=== PATIENT | female | born 1990 ===

== ENCOUNTER 2017-04-29 12:22 | Emergency (ER) | payer OTHER ==
[2017-04-29 12:22] VITALS: BMI 20.7
[2017-04-29 12:34] VITALS: TEMP 98
[2017-04-29] MEDS ORDERED: Albuterol-Ipratrop 3 mg / 0.5 (3 ml) UD INH STA ×3 (12:49→15:06)
--- NOTE | 2017-04-29 12:55 | ED PDOC ---
HPI: SOB/CHF/COPD Time Seen by Provider: 04/29/17 12:30 Chief Complaint (Nursing): Shortness Of Breath Chief Complaint (Provider): SOB, difficulty breathing History Per: Patient History/Exam Limitations: no limitations Onset/Duration Of Symptoms: Days (1) Current Symptoms Are (Timing): Still Present Initiating Event: Upper Respiratory Illness Context: Denies pain Exacerbating Factor(s): Exertion (Walking makes breahting more difficult) Current Respiratory Medications: Albuterol (One treatment at home) Additional Complaint(s): Pt states that over the weekend she had sore throat and mild cough. PT states she felt SOB today. Pt states she used her albuterol at home and it did not help. PT has history of asthma. No fever/chills. PT states she is very short of breath when she tries to walk. Past Medical History Reviewed: Historical Data, Nursing Documentation, Vital Signs Vital Signs: Last Vital Signs Temp 98.0 F 04/29/17 12:32 Pulse 121 H 04/29/17 12:32 Resp 16 04/29/17 12:32 BP 151/79 H 04/29/17 12:32 Pulse Ox 98 04/29/17 12:56 - Medical History PMH: Asthma Denies: Chronic Kidney Disease - Surgical History Surgical History: No Surg Hx - Family History Family History: States: No Known Family Hx - Living Arrangements Living Arrangements: With Family - Social History Current smoker - smoking cessation education provided: No Alcohol: Occasional Drugs: Denies - Home Medications Home Medications: Ambulatory Orders Medication Instructions Recorded Albuterol HFA [Ventolin HFA 90 2 puff IH [id number] PRN #1 puff 11/24/16 mcg/actuation (8 g)] predniSONE [Prednisone] 40 mg PO DAILY #10 tab 03/30/17 Albuterol 0.083% [Albuterol 0.083% 2.5 mg IH QID PRN #20 04/29/17 Inhal Brandee (2.5 mg/3 ml) UD] Albuterol HFA [Ventolin HFA 90 1 puff IH BID PRN #1 unit 04/29/17 mcg/actuation (8 g)] predniSONE [predniSONE Tab] 20 mg PO DAILY #12 tab 04/29/17 - Allergies Allergies/Adverse Reactions: Allergies Allergy/AdvReac Type Severity Reaction Status Date / Time pollen extracts Allergy SHORTNESS Verified 04/29/17 12:31 OF BREATH maple Allergy RASH Uncoded 04/29/17 12:31 Review of Systems ROS Statement: Except As Marked, All Systems Reviewed And Found Negative Constitutional: Negative for: Fever, Chills Respiratory: Positive for: Cough, Shortness of Breath, Wheezing Genitourinary Female: Negative for: Dysuria, Frequency Physical Exam - Reviewed Nursing Documentation Reviewed: Yes Vital Signs Reviewed: Yes - Physical Exam Appears: Positive for: Well, Non-toxic, No Acute Distress Head Exam: Positive for: ATRAUMATIC, NORMAL INSPECTION, NORMOCEPHALIC Skin: Positive for: Normal Color, Warm, DRY Eye Exam: Positive for: Normal appearance ENT: Positive for: Normal ENT Inspection Neck: Positive for: Normal, Painless ROM Cardiovascular/Chest: Positive for: Regular Rate, Rhythm Respiratory: Positive for: Wheezing (Diffuse bilateral ). Negative for: Accessory Muscle Use, Respiratory Distress Gastrointestinal/Abdominal: Positive for: Normal Exam, Bowel Sounds, Soft Back: Positive for: Normal Inspection Extremity: Positive for: Normal ROM Neurologic/Psych: Positive for: Alert, Oriented - Laboratory Results Result Diagrams: 04/29/17 13:10 04/29/17 13:10 - ECG O2 Sat by Pulse Oximetry: 98 Medical Decision Making Medical Decision Makin - Pt continued wheezing. 3rd treatment ordered. Pt reports improvement in breathing. Increased peak flow. Disposition - Clinical Impression Clinical Impression: Asthma - Patient ED Disposition Is Patient to be Admitted: No Counseled Patient/Family Regarding: Diagnosis, Need For Followup, Rx Given - Disposition Disposition: Routine/Home Disposition Time: 15:08 Condition: GOOD Prescriptions: Albuterol 0.083% [Albuterol 0.083% Inhal Brandee (2.5 mg/3 ml) UD] 2.5 mg IH QID PRN #20 PRN Reason: Shortness Of Breath Albuterol HFA [Ventolin HFA 90 mcg/actuation (8 g)] 1 puff IH BID PRN #1 unit PRN Reason: Wheezing predniSONE [predniSONE Tab] 20 mg PO DAILY #12 tab Instructions: Asthma (ED) Forms: [employer] (French)
[2017-04-29] MEDS ORDERED: Sodium Chloride 0.9% 1,000 ML IV STA (12:56)
[2017-04-29] MEDS ORDERED: Albuterol-Ipratrop 3 mg / 0.5 (3 ml) UD ONE (13:09)
[2017-04-29 13:38] LABS: ALB/GLOB RATIO 1.2 (1.0-2.1); ALKALINE PHOSPHATASE 73 U/L (38-126); ALT/SGPT 31 U/L (9-52); AST/SGOT 22 U/L (14-36); BILIRUBIN,TOTAL 0.2 mg/dl (0.2-1.3); BLOOD UREA NITROGEN 12 mg/dl (7-17); CALCIUM 8.5 mg/dL (8.4-10.2); CARBON DIOXIDE 21 mmol/L (22-30); CHLORIDE 109 mmol/L (98-107); GFR AFRICAN-AMERICAN > 60; GLUCOSE,RANDOM 93 mg/dL (65-105); POTASSIUM 3.8 MMOL/L (3.6-5.0); SODIUM 143 mmol/l (132-148); TOTAL PROTEIN 7.3 G/DL (6.3-8.2)
[2017-04-29 13:59] LABS: MEAN CORPUSCULAR HEMOGLOBIN 29.3 pg (27.0-31.0); RED CELL DISTRIBUTION WIDTH 12.2 % (11.5-14.5); WHITE BLOOD COUNT 9.9 K/uL (4.8-10.8)
--- NOTE | 2017-04-29 14:11 | RAD ---
HISTORY: cough, wheezing, asthma COMPARISON: No prior. TECHNIQUE: Chest PA and lateral FINDINGS: LUNGS: No active pulmonary disease. PLEURA: No significant pleural effusion identified. No pneumothorax apparent. CARDIOVASCULAR: Normal. OSSEOUS STRUCTURES: No significant abnormalities. VISUALIZED UPPER ABDOMEN: Normal. OTHER FINDINGS: Incidental bilateral breast implants identified. IMPRESSION: No acute cardiopulmonary disease appreciated.
[2017-04-29 15:54] VITALS: BP 140/80; PULSE 92; RESP 19; O2SAT 99
== END 2017-04-29 15:50 | disposition home or self-care (01) ==
LOC: H.ER 12:22
DX: J45.909 Unspecified asthma, uncomplicated (principal)
CPT/HCPCS: 71020; 80053; 81025; 85027; 94640; 96374; 99283; J2930; J7040

== ENCOUNTER 2017-12-19 22:21 | Emergency (ER) | payer OTHER ==
[2017-12-19 22:31] VITALS: BMI 20.7
[2017-12-19 22:32] VITALS: TEMP 98.7
[2017-12-19] MEDS ORDERED: guaiFENesin 100 mg/5 ml Syrup UD PO ONE (22:52)
[2017-12-19] MEDS ORDERED: guaiFENesin 100 mg/5 ml Syrup UD ONE (23:05)
[2017-12-19] MEDS ORDERED: Albuterol-Ipratrop 3 mg / 0.5 (3 ml) UD ONE (23:06)
[2017-12-19] MEDS: Albuterol-Ipratrop 3 mg / 0.5 (3 ml) UD IH SCH (23:21)
--- NOTE | 2017-12-20 00:14 | ED PDOC ---
History of Present Illness History of Present Illness: Maria Del Carmen Newsome is a 27 year old female with a past medical history of asthma, who is presenting to the ED with complaints of cough and associated mild shortness of breath, onset this morning. Patient reports using her inhaler this morning with mild improvement of symptoms. She denies any fever, rash, sore throat, chest pain, or recent travel. PMD: Sis HPI: Influenza Time Seen by Provider: 12/19/17 22:40 Chief Complaint: Cough, Cold, Congestion Chief Complaint (Provider): Cough, Cold, Congestion History Per: Patient Exam Limitations: no limitations Onset/Duration Of Symptoms: Hrs Symptoms include: cough. denies: fever, chest pain Past Medical History Reviewed: Historical Data, Nursing Documentation, Vital Signs Vital Signs: Last Vital Signs Temp 98.7 F 12/19/17 22:31 Pulse 106 H 12/19/17 22:31 Resp 18 12/19/17 22:31 BP 103/66 12/19/17 22:31 Pulse Ox 99 12/19/17 22:31 - Medical History PMH: Asthma Denies: Chronic Kidney Disease - Surgical History Other surgeries: Breast Augmentation - Family History Family History: States: Unknown Family Hx - Social History Ex-Smoker (has not smoked in the last 12 months): Yes Alcohol: Occasional Drugs: Denies - Immunization History Hx Tetanus Toxoid Vaccination: Yes - Home Medications Home Medications: Ambulatory Orders Medication Instructions Recorded Albuterol 0.083% [Albuterol 0.083% 2.5 mg IH QID PRN #20 04/29/17 Inhal Brandee (2.5 mg/3 ml) UD] Albuterol HFA [Ventolin HFA 90 1 puff IH BID PRN #1 unit 04/29/17 mcg/actuation (8 g)] Salmeterol Xinafoate/Fluticaso 60 puff IH BID #1 inhaler 05/14/17 [Advair Hfa 230-21] Benzonatate [Tessalon Perles] 200 mg PO TID #30 sgl 06/23/17 Budesonide [Pulmicort Respules] 0.5 mg IH [id number] #30 neb 06/23/17 Doxycycline Hyclate 100 mg PO BID #14 cap 06/23/17 Ergocalciferol [Drisdol 50,000 1 cap PO Q7D #7 cap 06/23/17 Intl Units Cap] Fluticasone Nasal [Flonase] 1 actuation NS DAILY #1 spr 06/23/17 Pantoprazole [Protonix EC Tab] 40 mg PO 0600,1600 #30 ect 06/23/17 predniSONE [Prednisone] 10 mg PO DAILY #100 tab 06/23/17 Albuterol HFA [Ventolin HFA 90 2 puff IH [id number] PRN #1 puff 07/29/17 mcg/actuation (8 g)] Fexofenadine/Pseudoephedrine 1 each PO BID PRN #24 tab.er.12h 07/29/17 [Joslyn-D 12 Hour Tablet] predniSONE [Prednisone] 40 mg PO DAILY #10 tab 07/29/17 Prednisone 50 mg PO DAILY #5 tab 08/04/17 Albuterol 0.083% [Albuterol 3 ml IH Q4 #100 neb 12/20/17 Sulfate 3 Ml] Nebulizer [Aeroeclipse II] 1 each MC DAILY #1 each 12/20/17 predniSONE [predniSONE Tab] 40 mg PO DAILY #8 tab 12/20/17 - Allergies Allergies/Adverse Reactions: Allergies Allergy/AdvReac Type Severity Reaction Status Date / Time pollen extracts Allergy SHORTNESS Verified 06/23/17 11:43 OF BREATH maple Allergy RASH Uncoded 06/23/17 11:43 Review of Systems ROS Statement: Except As Marked, All Systems Reviewed And Found Negative Constitutional: Negative for: Fever Cardiovascular: Negative for: Chest Pain Respiratory: Positive for: Cough, Shortness of Breath Physical Exam - Reviewed Nursing Documentation Reviewed: Yes Vital Signs Reviewed: Yes - Physical Exam Comments: GENERAL APPEARANCE: Patient is awake, alert, oriented x 3, in mild acute distress. SKIN: Warm, dry; (-) cyanosis. EYES: (-) conjunctival pallor. ENMT: Mucous membranes (+) moist. Airway patent: (-) stridor. Pharynx: (-) swelling, (-) erythema. NECK: (-) tenderness, (-) stiffness, (-) lymphadenopathy. CHEST AND RESPIRATORY: (+) bilateral expiratory wheezing; (-) rales, (-) rhonchi, (-) rub; breath sounds equal bilaterally. HEART AND CARDIOVASCULAR: (-) irregularity; (-) murmur, (-) gallop. ABDOMEN AND GI: Soft; (-) tenderness. EXTREMITIES: (-) deformity, (-) edema. NEURO AND PSYCH: Mental status as above; (-) focal findings. Medical Decision Making Medical Decision Making: Time: 23:00 Impression: asthma Plan: --Duoneb 3 ml INH --Robitussin 200 mg PO --Solu-Medrol 125 mg IM --Nebulizer Treatment --Peak Flow Pre/Post Tx Reevaluation: Patient in no acute distress, comfortable, and well-appearing. Feels much improved. Lungs clear bilaterally, no wheezing noted. VS : P 90 BP 106/64 R 20 O2sat 100%RA Advised to follow up with primary care physician in 1-2 days without fail. Advised to take medication as prescribed. Return to the emergency room at any time for any new or worsening symptoms. Patient states she fully agrees with and understands discharge instructions. States that she agrees with the plan and disposition. Verbalized and repeated discharge instructions and plan. I have given the patient opportunity to ask any additional questions. Scribe Attestation: Documented byVeena acting as a scribe for Jeimy Bell PA-C. Provider Scribe Attestation: All medical record entries made by the Scribe were at my direction and personally dictated by me. I have reviewed the chart and agree that the record accurately reflects my personal performance of the history, physical exam, medical decision making, and the department course for this patient. I have also personally directed, reviewed, and agree with the discharge instructions and disposition. - ECG O2 Sat by Pulse Oximetry: 99 (RA) Pulse Ox Interpretation: Normal Disposition - Clinical Impression Clinical Impression: Cough, Asthma - Patient ED Disposition Is Patient to be Admitted: No Counseled Patient/Family Regarding: Diagnosis, Need For Followup, Rx Given - Disposition Disposition: Routine/Home Disposition Time: 00:15 Condition: IMPROVED Additional Instructions: Thank you for letting us take care of you today. You were treated for cough, asthma. The emergency medical care you received today was directed at your acute symptoms. If you were prescribed any medication, please fill it and take as directed. It may take several days for your symptoms to resolve. Return to the Emergency Department if your symptoms worsen, do not improve, or if you have any other problems. Please contact your doctor in 2 days for re-evaluation and follow up / or call one of the physicians/clinics you have been referred to that are listed on the Patient Visit Information form that is included in your discharge packet. Bring any paperwork you were given at discharge with you along with any medications you are taking to your follow up visit. Our treatment cannot replace ongoing medical care by a primary care provider (PCP) outside of the emergency department. Thank you for allowing the [facility] team to be part of your care today. Prescriptions: Albuterol 0.083% [Albuterol Sulfate 3 Ml] 3 ml IH Q4 #100 neb Nebulizer [Aeroeclipse II] 1 each MC DAILY #1 each predniSONE [predniSONE Tab] 40 mg PO DAILY #8 tab Instructions: Asthma in Adults, Cough in Adults Forms: [employer] (Greenlandic)
[2017-12-20 00:53] VITALS: BP 106/64; PULSE 90; RESP 20
[2017-12-20 03:20] VITALS: O2SAT 99
== END 2017-12-20 00:58 | disposition home or self-care (01) ==
LOC: H.ER 22:21
DX: R05 Cough (principal); J45.909 Unspecified asthma, uncomplicated; Z87.891 Personal history of nicotine dependence
CPT/HCPCS: 81025; 94150; 94640; 96372; 99283; J2930

== ENCOUNTER 2018-06-22 17:26 | Emergency (ER) | payer OTHER ==
[2018-06-22 17:26] VITALS: BMI 20.7
[2018-06-22 17:42] VITALS: BP 107/72; PULSE 98; RESP 18; TEMP 99.5; O2SAT 98
--- NOTE | 2018-06-22 18:49 | ED PDOC ---
HPI: CCC, URI, Sore Throat Chief Complaint (Nursing): ENT Problem Chief Complaint (Provider): ENT Problem History Per: Patient History/Exam Limitations: no limitations Onset/Duration Of Symptoms: Days (x1 day) Current Symptoms Are (Timing): Still Present Additional Complaint(s): Maria Del Carmen Newsome is a 27 year old female with a past medical history of asthma, who presents to the emergency department complaining of having URI symptoms since yesterday. Patient states she has redness and drainage from her right eye associated with mild sore throat and cough, back pain and wheezing. She reports that she has seen her PMD and was given antibiotic eyedrops for pink eye yesterday. She states she was negative from strep and flu. As per patient, her son also has pink eye and URI symptoms. She states she that yesterday when she started to experience back pain and wheezing, she used her nebulizer and it improved. PMD: Fouzia Landis Past Medical History Reviewed: Historical Data, Nursing Documentation, Vital Signs Vital Signs: Last Vital Signs Temp 99.5 F 06/22/18 17:38 Pulse 98 H 06/22/18 17:38 Resp 18 06/22/18 17:38 BP 107/72 06/22/18 17:38 Pulse Ox 98 06/22/18 17:38 - Medical History PMH: Asthma Denies: Chronic Kidney Disease - Surgical History Surgical History: No Surg Hx - Family History Family History: States: Unknown Family Hx - Immunization History Hx Tetanus Toxoid Vaccination: Yes - Home Medications Home Medications: Ambulatory Orders Medication Instructions Recorded RX: Albuterol 0.083% [Albuterol 2.5 mg IH QID PRN #20 04/29/17 0.083% Inhal Brandee (2.5 mg/3 ml) UD] RX: Albuterol HFA [Ventolin HFA 90 1 puff IH BID PRN #1 unit 04/29/17 mcg/actuation (8 g)] RX: Salmeterol Xinafoate/Fluticaso 60 puff IH BID #1 inhaler 05/14/17 [Advair Hfa 230-21] RX: Benzonatate [Tessalon Perles] 200 mg PO TID #30 sgl 06/23/17 RX: Budesonide [Pulmicort Respules] 0.5 mg IH [id number] #30 neb 06/23/17 RX: Doxycycline Hyclate 100 mg PO BID #14 cap 06/23/17 RX: Ergocalciferol [Drisdol 50,000 1 cap PO Q7D #7 cap 06/23/17 Intl Units Cap] RX: Fluticasone Nasal [Flonase] 1 actuation NS DAILY #1 spr 06/23/17 RX: Pantoprazole [Protonix EC Tab] 40 mg PO 0600,1600 #30 ect 06/23/17 predniSONE [Prednisone] 10 mg PO DAILY #100 tab 06/23/17 Fexofenadine/Pseudoephedrine 1 each PO BID PRN #24 tab.er.12h 07/29/17 [Joslyn-D 12 Hour Tablet] RX: Albuterol HFA [Ventolin HFA 90 2 puff IH [id number] PRN #1 puff 07/29/17 mcg/actuation (8 g)] predniSONE [Prednisone] 40 mg PO DAILY #10 tab 07/29/17 RX: Prednisone 50 mg PO DAILY #5 tab 08/04/17 Albuterol 0.083% [Albuterol 3 ml IH Q4 #100 neb 12/20/17 Sulfate 3 Ml] RX: Nebulizer [Aeroeclipse II] 1 each MC DAILY #1 each 12/20/17 RX: predniSONE [predniSONE Tab] 40 mg PO DAILY #8 tab 12/20/17 Azithromycin [Zithromax] 250 mg PO DAILY #6 tab 06/22/18 RX: Prednisone 50 mg PO DAILY #4 tablet 06/22/18 - Allergies Allergies/Adverse Reactions: Allergies Allergy/AdvReac Type Severity Reaction Status Date / Time pollen extracts Allergy SHORTNESS Verified 06/22/18 17:38 OF BREATH maple Allergy RASH Uncoded 06/22/18 17:38 Review of Systems ROS Statement: Except As Marked, All Systems Reviewed And Found Negative Constitutional: Positive for: Fever Eyes: Positive for: Conjunctivae Inflammation ENT: Positive for: Nose Congestion, Throat Pain Respiratory: Positive for: Cough Physical Exam - Reviewed Nursing Documentation Reviewed: Yes Vital Signs Reviewed: Yes - Physical Exam Appears: Positive for: Non-toxic, No Acute Distress Head Exam: Positive for: ATRAUMATIC, NORMOCEPHALIC Eye Exam: Positive for: Conjunctival injection ENT: Positive for: Pharyngeal Erythema, Tonsillar Swelling Cardiovascular/Chest: Positive for: Regular Rate, Rhythm. Negative for: Murmur Respiratory: Positive for: Normal Breath Sounds. Negative for: Respiratory Distress Lymphatic: Positive for: Adenopathy (mild anterier cervical lymphadenopathy ) - ECG O2 Sat by Pulse Oximetry: 98 (RA) Pulse Ox Interpretation: Normal Medical Decision Making Medical Decision Making: Time: 18:18 Plan: --Ed urine --Motrin 600 mg PO --predniSONE 50 mg PO Pt. well appearing ,tolerating po. Lungs clear, no wheeze at present, has nebs at home. Advised to continue eye drops. Scribe Attestation: Documented by Frank Guardado, acting as a scribe for Keily Frederick PA-C. Provider Scribe Attestation: All medical record entries made by the Scribe were at my direction and personally dictated by me. I have reviewed the chart and agree that the record accurately reflects my personal performance of the history, physical exam, medical decision making, and the department course for this patient. I have also personally directed, reviewed, and agree with the discharge instructions and disposition. Disposition - Clinical Impression Clinical Impression: Tonsillitis - Disposition Disposition Time: 19:26 Condition: STABLE Prescriptions: Azithromycin [Zithromax] 250 mg PO DAILY #6 tab RX: Prednisone 50 mg PO DAILY #4 tablet Instructions: Sore Throat, Adult (DC) Forms: [employer] (Martiniquais), [facility] ED School/Work Excuse
== END 2018-06-22 19:26 | disposition home or self-care (01) ==
LOC: H.ER 17:26
DX: H57.9 Unspecified disorder of eye and adnexa (principal); J03.90 Acute tonsillitis, unspecified; J45.909 Unspecified asthma, uncomplicated